=== PATIENT | female | born 1935 | race American Indian/Alaskan Native ===

== ENCOUNTER 2017-09-08 00:09 | Emergency (ER) | payer MEDICARE ==
--- NOTE | 2017-09-08 00:48 | Emergency Department Report ---
ED Altered Mental Status HPI - General Chief Complaint: Altered Mental Status Stated Complaint: PYSCHIATRIC EVALUATION Time Seen by Provider: 09/08/17 00:36 Source: EMS Mode of arrival: Stretcher Limitations: Altered Mental Status - History of Present Illness Initial Comments: 82-year-old female with a past medical history of dementia, schizophrenia, type 2 diabetes, hypertension, and unspecified arthropathy presents to the hospital from [facility] with complaint of alteration of mental status and combative behavior. Apparently patient was just discharged from [facility] but the residential staff did not know what treatment she received a why she was admitted to [facility]. Unable to provide any useful history of present illness from patient. She only answers questions on occasion and is intimately cooperative. She presents soiled in urine. As per MAR patient has been on Bactrim twice a day since the for UTI and prescribed for 14 days. - Related Data Home Medications Medication Instructions Recorded Confirmed Last Taken Acetaminophen 325 mg PO Q4HR PRN 09/08/17 09/08/17 Unknown Amlodipine Besylate [Norvasc] 10 mg PO DAILY 09/08/17 09/08/17 Unknown Aspirin 81 mg PO DAILY 09/08/17 09/08/17 Unknown Cyanocobalamin (Vitamin B-12) 1,000 mcg PO DAILY 09/08/17 09/08/17 Unknown [Vitamin B-12] Insulin Regular, Human [Novolin R] 1 vial SUB-Q QID 09/08/17 09/08/17 Unknown Pravastatin [Pravachol] 40 mg PO QHS 09/08/17 09/08/17 Unknown Risperidone Microspheres 12.5 mg IM QDAY 09/08/17 09/08/17 Unknown [RisperDAL Consta] Sulfamethoxazole/Trimethoprim 800 mg PO BID 09/08/17 09/08/17 Unknown [Bactrim DS TAB] metFORMIN [Glucophage] 500 mg PO BID 09/08/17 09/08/17 Unknown Allergies Allergy/AdvReac Type Severity Reaction Status Date / Time Cephalosporins Allergy Unknown Verified 09/08/17 00:45 haloperidol [From Haldol] Allergy Unknown Verified 09/08/17 00:44 lisinopril Allergy Unknown Verified 09/08/17 00:45 Penicillins Allergy Unknown Verified 09/08/17 00:45 ED Review of Systems ROS: Stated complaint: PYSCHIATRIC EVALUATION Other details as noted in HPI Comment: Unobtainable due to pts medical conditions (dementia/schizophrenia) ED Past Medical Hx - Past Medical History Previous Medical History?: Yes Hx Hypertension: Yes Hx Psychiatric Treatment: Yes (schizo) Hx Dementia: Yes - Social History Smoking Status: Unknown if ever smoked Substance Use Type: None - Medications Home Medications: Home Medications Medication Instructions Recorded Confirmed Last Taken Type Acetaminophen 325 mg PO Q4HR PRN 09/08/17 09/08/17 Unknown History Amlodipine Besylate [Norvasc] 10 mg PO DAILY 09/08/17 09/08/17 Unknown History Aspirin 81 mg PO DAILY 09/08/17 09/08/17 Unknown History Cyanocobalamin (Vitamin B-12) 1,000 mcg PO DAILY 09/08/17 09/08/17 Unknown History [Vitamin B-12] Insulin Regular, Human [Novolin R] 1 vial SUB-Q QID 09/08/17 09/08/17 Unknown History Pravastatin [Pravachol] 40 mg PO QHS 09/08/17 09/08/17 Unknown History Risperidone Microspheres 12.5 mg IM QDAY 09/08/17 09/08/17 Unknown History [RisperDAL Consta] Sulfamethoxazole/Trimethoprim 800 mg PO BID 09/08/17 09/08/17 Unknown History [Bactrim DS TAB] metFORMIN [Glucophage] 500 mg PO BID 09/08/17 09/08/17 Unknown History ED Physical Exam - General Limitations: Altered Mental Status - Other Other exam information: General: Alert but into many cooperative with exam Head exam: Atraumatic, normocephalic Eyes exam: Normal appearance, pupils equal reactive to light ENT: Moist mucous membrane, normal oropharynx Neck exam: Normal inspection, full range of motion, no meningismus nontender Respiratory exam: Clear to auscultation bilateral, no wheezes, rales, crackles Cardiovascular: Normal rate and rhythm, normal heart sounds Abdomen: Soft, nondistended, and nontender, with normal bowel sounds, no rebound, or guarding Extremity: Full range of motion normal inspection no deformity Back: Normal Inspection, full range of motion, no tenderness Neurologic: Alert, refusing to speak and answer questions, noticeable facial droop, equal movement of upper extremities and lower extremities with grossly intact sensation Psychiatric: normal affect, normal mood Skin: Warm, dry, intact ED Course Vital Signs 09/08/17 09/08/17 00:52 06:04 Temperature 98.2 F Pulse Rate 64 75 Respiratory 18 21 Rate Blood Pressure 200/84 168/83 [Right] O2 Sat by Pulse 98 97 Oximetry - Reevaluation(s) Reevaluation #1: 09/08/17 06:05 Patient remains calm and cooperative and eating another tray of food. Given insulin for mild hyperglycemia since she plans to eat another meal - Lab Data Result diagrams: 09/08/17 03:25 09/08/17 02:04 Lab Results 09/08/17 09/08/17 09/08/17 Range/Units 01:27 02:04 02:04 WBC (4.5-11.0) K/mm3 RBC (3.65-5.03) M/mm3 Hgb (10.1-14.3) gm/dl Hct (30.3-42.9) % MCV (79-97) fl MCH (28-32) pg MCHC (30-34) % RDW (13.2-15.2) % Plt Count (140-440) K/mm3 Lymph % (Auto) (13.4-35.0) % Arthur % (Auto) (0.0-7.3) % Eos % (Auto) (0.0-4.3) % Baso % (Auto) (0.0-1.8) % Lymph # (1.2-5.4) K/mm3 Arthur # (0.0-0.8) K/mm3 Eos # (0.0-0.4) K/mm3 Baso # (0.0-0.1) K/mm3 Seg Neutrophils % (40.0-70.0) % Seg Neutrophils # (1.8-7.7) K/mm3 PT 13.3 (12.2-14.9) Sec. INR 0.96 (0.87-1.13) Sodium (137-145) mmol/L Potassium (3.6-5.0) mmol/L Chloride (98-107) mmol/L Carbon Dioxide (22-30) mmol/L Anion Gap mmol/L BUN (7-17) mg/dL Creatinine (0.7-1.2) mg/dL Estimated GFR ml/min BUN/Creatinine Ratio % Glucose (65-100) mg/dL POC Glucose (70-105) Calcium (8.4-10.2) mg/dL Total Creatine Kinase (30-135) units/L Troponin T (0.00-0.029) ng/mL TSH (0.270-4.200) mlU/mL Free T4 (0.76-1.46) ng/dL Urine Color Straw (Yellow) Urine Turbidity Clear (Clear) Urine pH 6.0 (5.0-7.0) Ur Specific [place] 1.010 (1.003-1.030) Urine Protein <15 mg/dl (Negative) mg/dL Urine Glucose (UA) Neg (Negative) mg/dL Urine Ketones Neg (Negative) mg/dL Urine Blood Neg (Negative) Urine Nitrite Neg (Negative) Urine Bilirubin Neg (Negative) Urine Urobilinogen < 2.0 (<2.0) mg/dL Ur Leukocyte Esterase Mod (Negative) Urine WBC (Auto) 8.0 H (0.0-6.0) /HPF Urine RBC (Auto) 2.0 (0.0-6.0) /HPF U Epithel Cells (Auto) 2.0 (0-13.0) /HPF Urine Mucus Few /HPF Salicylates (2.8-20.0) mg/dL Acetaminophen (10.0-30.0) ug/mL Plasma/Serum Alcohol < 0.01 (0-0.07) % 09/08/17 09/08/17 09/08/17 Range/Units 02:04 02:04 02:04 WBC (4.5-11.0) K/mm3 RBC (3.65-5.03) M/mm3 Hgb (10.1-14.3) gm/dl Hct (30.3-42.9) % MCV (79-97) fl MCH (28-32) pg MCHC (30-34) % RDW (13.2-15.2) % Plt Count (140-440) K/mm3 Lymph % (Auto) (13.4-35.0) % Arthur % (Auto) (0.0-7.3) % Eos % (Auto) (0.0-4.3) % Baso % (Auto) (0.0-1.8) % Lymph # (1.2-5.4) K/mm3 Arthur # (0.0-0.8) K/mm3 Eos # (0.0-0.4) K/mm3 Baso # (0.0-0.1) K/mm3 Seg Neutrophils % (40.0-70.0) % Seg Neutrophils # (1.8-7.7) K/mm3 PT (12.2-14.9) Sec. INR (0.87-1.13) Sodium 137 (137-145) mmol/L Potassium 4.0 (3.6-5.0) mmol/L Chloride 96.9 L (98-107) mmol/L Carbon Dioxide 28 (22-30) mmol/L Anion Gap 16 mmol/L BUN 22 H (7-17) mg/dL Creatinine 0.8 (0.7-1.2) mg/dL Estimated GFR > 60 ml/min BUN/Creatinine Ratio 28 % Glucose 144 H (65-100) mg/dL POC Glucose (70-105) Calcium 9.2 (8.4-10.2) mg/dL Total Creatine Kinase 86 (30-135) units/L Troponin T < 0.010 (0.00-0.029) ng/mL TSH (0.270-4.200) mlU/mL Free T4 (0.76-1.46) ng/dL Urine Color (Yellow) Urine Turbidity (Clear) Urine pH (5.0-7.0) Ur Specific [place] (1.003-1.030) Urine Protein (Negative) mg/dL Urine Glucose (UA) (Negative) mg/dL Urine Ketones (Negative) mg/dL Urine Blood (Negative) Urine Nitrite (Negative) Urine Bilirubin (Negative) Urine Urobilinogen (<2.0) mg/dL Ur Leukocyte Esterase (Negative) Urine WBC (Auto) (0.0-6.0) /HPF Urine RBC (Auto) (0.0-6.0) /HPF U Epithel Cells (Auto) (0-13.0) /HPF Urine Mucus /HPF Salicylates < 0.3 L (2.8-20.0) mg/dL Acetaminophen < 5.0 L (10.0-30.0) ug/mL Plasma/Serum Alcohol (0-0.07) % 09/08/17 09/08/17 09/08/17 Range/Units 02:04 03:25 05:36 WBC 5.5 (4.5-11.0) K/mm3 RBC 4.50 (3.65-5.03) M/mm3 Hgb 11.8 (10.1-14.3) gm/dl Hct 37.8 (30.3-42.9) % MCV 84 (79-97) fl MCH 26 L (28-32) pg MCHC 31 (30-34) % RDW 14.9 (13.2-15.2) % Plt Count 208 (140-440) K/mm3 Lymph % (Auto) 34.5 (13.4-35.0) % Arthur % (Auto) 9.8 H (0.0-7.3) % Eos % (Auto) 1.6 (0.0-4.3) % Baso % (Auto) 0.8 (0.0-1.8) % Lymph # 1.9 (1.2-5.4) K/mm3 Arthur # 0.5 (0.0-0.8) K/mm3 Eos # 0.1 (0.0-0.4) K/mm3 Baso # 0.0 (0.0-0.1) K/mm3 Seg Neutrophils % 53.3 (40.0-70.0) % Seg Neutrophils # 2.9 (1.8-7.7) K/mm3 PT (12.2-14.9) Sec. INR (0.87-1.13) Sodium (137-145) mmol/L Potassium (3.6-5.0) mmol/L Chloride (98-107) mmol/L Carbon Dioxide (22-30) mmol/L Anion Gap mmol/L BUN (7-17) mg/dL Creatinine (0.7-1.2) mg/dL Estimated GFR ml/min BUN/Creatinine Ratio % Glucose (65-100) mg/dL POC Glucose 226 H (70-105) Calcium (8.4-10.2) mg/dL Total Creatine Kinase (30-135) units/L Troponin T (0.00-0.029) ng/mL TSH 3.760 (0.270-4.200) mlU/mL Free T4 1.26 (0.76-1.46) ng/dL Urine Color (Yellow) Urine Turbidity (Clear) Urine pH (5.0-7.0) Ur Specific [place] (1.003-1.030) Urine Protein (Negative) mg/dL Urine Glucose (UA) (Negative) mg/dL Urine Ketones (Negative) mg/dL Urine Blood (Negative) Urine Nitrite (Negative) Urine Bilirubin (Negative) Urine Urobilinogen (<2.0) mg/dL Ur Leukocyte Esterase (Negative) Urine WBC (Auto) (0.0-6.0) /HPF Urine RBC (Auto) (0.0-6.0) /HPF U Epithel Cells (Auto) (0-13.0) /HPF Urine Mucus /HPF Salicylates (2.8-20.0) mg/dL Acetaminophen (10.0-30.0) ug/mL Plasma/Serum Alcohol (0-0.07) % - EKG Data -: EKG Interpreted by Fl EKG shows normal: sinus rhythm, axis (-30), QRS complexes (qrsd 86), ST-T waves (no stemi, lvh) Rate: normal (65) When compared to previous EKG there are: previous EKG unavailable - Radiology Data Radiology results: report reviewed ct head: FINDINGS: There is no evidence of acute stroke or hemorrhage. There is age related volume loss. There is a non specific 6.1 mm calcification in the left frontal lobe. There are no extra-axial fluid collections. The ventricular system is appropriate in size. The visualized sinuses are clear. The mastoid air cells are well pneumatized. The calvarium appears intact. IMPRESSION: Age related volume loss. No evidence of acute stroke or hemorrhage. - Medical Decision Making Alteration in mental status as reported by residential It appears that patient is demented and has schizophrenia and had an outburst while at the residential Here she has been selectively answering questions but overall cooperative and was able even to provide a urine sample upon request and did not require catheterization Pt also assisted in cleaning her self Pt received IM geodon 10mg and Benadryl 50 mg in Ed She is eating and drinking in the ER appropriately Labs unremarkable with exception of increased white cells and urine however, patient is already on Bactrim just started on the for UTI CT head unremarkable Pt will be held till the am and d/c back to [place] will be attempted. Her current meds will be continued IF pt become combative then a evaluation for med adjustment might be necessary otherwise, Pt is stable for return back to [facility] and to continue Bactrim for uti - Differential Diagnosis dementia, delirium, UTI, CVA, encephalopathy Critical Care Time: No Critical care attestation.: If time is entered above; I have spent that time in minutes in the direct care of this critically ill patient, excluding procedure time. ED Disposition Clinical Impression: Dementia, Schizophrenia, UTI (urinary tract infection) Disposition: TO HOME OR SELFCARE Is pt being admited?: No Condition: Stable Instructions: Urinary Tract Infection in Women (ED), Schizophrenia (ED), Dementia (ED) Additional Instructions: Continue current medications and current antibiotics for UTI Referrals: DEVI TINEO MD [Primary Care Provider] - 3-5 Days Time of Disposition: 06:06
[2017-09-08] MEDS ORDERED: GEODON IM ONE (00:50)
[2017-09-08] MEDS ORDERED: BENADRYL IM ONE (00:50)
[2017-09-08 01:39] LABS: Bilirubin,Urine NEG (Negative); Blood,Urine NEG (Negative); Color,Urine Straw (Yellow); Mucus,Urine FEW /HPF; Protein,Urine <15 mg/dL mg/dL (Negative); Urobilinogen,Urine < 2.0 mg/dL (<2.0)
[2017-09-08 02:24] LABS: INR 0.96 (0.87-1.13)
[2017-09-08 02:39] LABS: BUN/Creatinine Ratio 28; Blood Urea Nitrogen 22 mg/dL (7-17); Calcium 9.2 mg/dL (8.4-10.2); Hemolysis Index 20
[2017-09-08 02:49] LABS: Free T4 (Free Thyroxine) 1.26 ng/dL (0.76-1.46)
[2017-09-08 03:31] LABS: Basophils % (Auto) 0.8 % (0.0-1.8); Eosinophils # (Auto) 0.1 K/mm3 (0.0-0.4); Eosinophils % (Auto) 1.6 % (0.0-4.3); Hematocrit 37.8 % (30.3-42.9); Hemoglobin 11.8 gm/dl (10.1-14.3); Lymphocytes # (Auto) 1.9 K/mm3 (1.2-5.4); Lymphocytes % (Auto) 34.5 % (13.4-35.0); Mean Corpuscular HGB Conc 31 % (30-34); Mean Corpuscular Hemoglobin 26 pg (28-32); Mean Corpuscular Volume 84 fl (79-97); Monocytes # (Auto) 0.5 K/mm3 (0.0-0.8); Monocytes % (Auto) 9.8 % (0.0-7.3); Platelet Count 208 K/mm3 (140-440); Red Cell Distribution Width 14.9 % (13.2-15.2)
--- NOTE | 2017-09-08 03:43 | Cat Scan Report ---
FINAL REPORT EXAM: CT HEAD/BRAIN WO CON HISTORY: Altered Mental Status TECHNIQUE: Routine axial imaging was obtained of the brain without IV contrast. FINDINGS: There is no evidence of acute stroke or hemorrhage. There is age related volume loss. There is a non specific 6.1 mm calcification in the left frontal lobe. There are no extra-axial fluid collections. The ventricular system is appropriate in size. The visualized sinuses are clear. The mastoid air cells are well pneumatized. The calvarium appears intact. IMPRESSION: Age related volume loss. No evidence of acute stroke or hemorrhage.
[2017-09-08] MEDS ORDERED: TYLENOL PO PRN (04:10)
[2017-09-08] MEDS ORDERED: HumuLIN R IV ONE (05:33)
[2017-09-08] MEDS ORDERED: HumuLIN R SUB-Q ONE (05:39)
[2017-09-08] MEDS: HumuLIN R SUB-Q SCH ×2 (07:40→12:00)
[2017-09-08] MEDS ORDERED: GLUCOPHAGE PO SCH (08:00)
[2017-09-08] MEDS ORDERED: HumuLIN R SUB-Q SCH (10:00)
[2017-09-08] MEDS ORDERED: BABY ASPIRIN PO SCH (10:00)
[2017-09-08] MEDS ORDERED: BACTRIM DS PO SCH (10:00)
[2017-09-08] MEDS ORDERED: NORVASC PO SCH (10:00)
[2017-09-08] MEDS ORDERED: RISPERIDONE MICROSPHERES IM SCH (10:00)
[2017-09-08] MEDS ORDERED: VITAMIN B-12 PO SCH (10:00)
[2017-09-08 15:14] VITALS: BP 160/82
[2017-09-08] MEDS ORDERED: PRAVACHOL PO SCH (22:00)
== END 2017-09-08 14:56 | disposition home or self-care (01) ==
LOC: ED 00:09 → EEVIPCON 00:09 → ED 14:56
DX: N39.0 Urinary tract infection, site not specified (principal); F20.9 Schizophrenia, unspecified; F03.90 Unspecified dementia, unspecified severity, without behavioral disturbance, psychotic disturbance, mood disturbance, and anxiety; E11.9 Type 2 diabetes mellitus without complications; I10 Essential (primary) hypertension; Z79.82 Long term (current) use of aspirin; Z79.4 Long term (current) use of insulin; Z88.8 Allergy status to other drugs, medicaments and biological substances; Z88.0 Allergy status to penicillin
CPT/HCPCS: 36415; 51701; 70450; 80048; 81001; 82550; 82962; 84439; 84443; 84484; 85025; 85610; 87086; 93005; 93010; 96372; 99284; G0480; J1200; J3486; 80320; A9270-GY; J1815